=== PATIENT | female | born 1965 ===

== ENCOUNTER 2023-07-25 20:57 | Outpatient (REF) | payer MEDICARE, MEDICAID, SELFPAY ==
[2023-07-25 21:42] LABS: Basophils Percent Auto 0.6 % (0.2-2.0); Eosinophils Absolute Auto 0.2 10^3/uL (0.0-0.7); Eosinophils Percent Auto 3.2 % (0.9-7.0); Hematocrit 29.8 % (36.0-48.0); Hemoglobin 9.5 g/dL (12.0-16.0); Lymphocytes Absolute Auto 3.6 10^3/uL (1.2-3.8); Lymphocytes Percent Auto 58.1 % (20.5-60.0); Mean Corpuscular HGB Conc 31.9 g/dL (29.9-35.2); Mean Corpuscular Hemoglobin 30.4 pg (26.7-34.0); Mean Corpuscular Volume 95.5 fL (81.0-99.0); Mean Platelet Volume 10.9 fL (9.5-13.5); Monocytes Absolute Auto 0.7 10^3/uL (0.3-0.8); Monocytes Percent Auto 11.7 % (1.7-12.0); Neutrophils Absolute Auto 1.7 10^3/uL (1.4-6.5); Neutrophils Percent Auto 26.4 % (43.0-75.0); Platelet Count 323 10^3/uL (150-450); Red Blood Count 3.12 10^6/uL (4.20-5.40); Red Cell Distribution Width 12.7 % (11.0-15.0); White Blood Count 6.3 10^3/uL (4.0-11.0)
[2023-07-25 21:52] LABS: Alanine Aminotransferase 140 U/L (14-59); Albumin Globulin Ratio 1.1; Albumin Level 3.6 g/dL (3.4-5.0); Alkaline Phosphatase 123 U/L (46-116); Anion Gap 10.5; Aspartate Amino Transferase 82 U/L (15-37); BUN Creatinine Ratio 28.3; Bilirubin Total 0.3 mg/dL (0.2-1.0); Calcium 8.3 mg/dL (8.5-10.1); Carbon Dioxide 23.2 mmol/L (21.0-32.0); Chloride 110 mmol/L (98-107); Estimated GFR (African America >60 (>=60); Estimated GFR (Non-African Ame >60 (>=60); Globulin 3.3 g/dL; Glucose 73 mg/dL (74-106); Phosphorus 4.8 mg/dL (2.6-4.7); Potassium 4.7 mmol/L (3.5-5.1); Sodium 139 mmol/L (136-145); Total Protein 6.9 g/dL (6.4-8.2); Triglycerides 83 mg/dL (<=150)
== END 2023-07-25 20:58 | disposition home or self-care (01) ==
LOC: LAB 20:57
DX: E55.9 Vitamin D deficiency, unspecified (principal); E46 Unspecified protein-calorie malnutrition; R63.30 Feeding difficulties, unspecified
CPT/HCPCS: 36415; 80053; 83735; 84100; 84478; 85025

== ENCOUNTER 2023-08-08 16:27 | Outpatient (REF) | payer MEDICARE, MEDICAID, SELFPAY ==
[2023-08-08 16:58] LABS: Basophils Percent Auto 0.7 % (0.2-2.0); Eosinophils Absolute Auto 0.3 10^3/uL (0.0-0.7); Eosinophils Percent Auto 5.2 % (0.9-7.0); Hematocrit 32.3 % (36.0-48.0); Hemoglobin 9.9 g/dL (12.0-16.0); Lymphocytes Absolute Auto 3.3 10^3/uL (1.2-3.8); Lymphocytes Percent Auto 58.5 % (20.5-60.0); Mean Corpuscular HGB Conc 30.7 g/dL (29.9-35.2); Mean Corpuscular Hemoglobin 29.9 pg (26.7-34.0); Mean Corpuscular Volume 97.6 fL (81.0-99.0); Mean Platelet Volume 10.9 fL (9.5-13.5); Monocytes Absolute Auto 0.6 10^3/uL (0.3-0.8); Monocytes Percent Auto 10.6 % (1.7-12.0); Neutrophils Absolute Auto 1.4 10^3/uL (1.4-6.5); Platelet Count 336 10^3/uL (150-450); Red Blood Count 3.31 10^6/uL (4.20-5.40); Red Cell Distribution Width 13.5 % (11.0-15.0); White Blood Count 5.6 10^3/uL (4.0-11.0)
[2023-08-08 17:25] LABS: Alanine Aminotransferase 46 U/L (14-59); Albumin Globulin Ratio 0.9; Albumin Level 3.4 g/dL (3.4-5.0); Alkaline Phosphatase 101 U/L (46-116); Anion Gap 13.4; Aspartate Amino Transferase 37 U/L (15-37); Bilirubin Total 0.4 mg/dL (0.2-1.0); Calcium 8.5 mg/dL (8.5-10.1); Chloride 108 mmol/L (98-107); Estimated GFR (African America >60 (>=60); Estimated GFR (Non-African Ame 55 (>=60); Globulin 3.8 g/dL; Glucose 78 mg/dL (74-106); Magnesium 2.2 mg/dL (1.8-2.4); Phosphorus 4.3 mg/dL (2.6-4.7); Potassium 4.4 mmol/L (3.5-5.1); Sodium 142 mmol/L (136-145); Total Protein 7.2 g/dL (6.4-8.2); Triglycerides 92 mg/dL (<=150)
== END 2023-08-08 16:28 | disposition home or self-care (01) ==
LOC: LAB 16:27
DX: E55.9 Vitamin D deficiency, unspecified (principal); R63.30 Feeding difficulties, unspecified; E46 Unspecified protein-calorie malnutrition
CPT/HCPCS: 36415; 80053; 83735; 84100; 84478; 85025

== ENCOUNTER 2023-08-20 17:10 | Outpatient (REF) | payer MEDICARE, MEDICAID, SELFPAY ==
[2023-08-20 18:17] LABS: Basophils Percent Auto 0.5 % (0.2-2.0); Eosinophils Absolute Auto 0.2 10^3/uL (0.0-0.7); Eosinophils Percent Auto 3.3 % (0.9-7.0); Hematocrit 28.8 % (36.0-48.0); Hemoglobin 9.1 g/dL (12.0-16.0); Immature Granulocytes Abs Auto 0.01 10^3/uL (0.00-0.03); Immature Granulocytes Pct Auto 0.2 % (0.0-0.5); Lymphocytes Absolute Auto 3.3 10^3/uL (1.2-3.8); Lymphocytes Percent Auto 53.4 % (20.5-60.0); Mean Corpuscular HGB Conc 31.6 g/dL (29.9-35.2); Mean Corpuscular Hemoglobin 30.2 pg (26.7-34.0); Mean Corpuscular Volume 95.7 fL (81.0-99.0); Mean Platelet Volume 10.9 fL (9.5-13.5); Monocytes Absolute Auto 0.6 10^3/uL (0.3-0.8); Neutrophils Percent Auto 32.6 % (43.0-75.0); Platelet Count 271 10^3/uL (150-450); Red Blood Count 3.01 10^6/uL (4.20-5.40); Red Cell Distribution Width 13.7 % (11.0-15.0); White Blood Count 6.1 10^3/uL (4.0-11.0)
[2023-08-20 18:25] LABS: Alanine Aminotransferase 41 U/L (14-59); Albumin Globulin Ratio 0.9; Albumin Level 3.3 g/dL (3.4-5.0); Alkaline Phosphatase 112 U/L (46-116); Anion Gap 12.7; Aspartate Amino Transferase 38 U/L (15-37); Bilirubin Total 0.4 mg/dL (0.2-1.0); Calcium 8.6 mg/dL (8.5-10.1); Carbon Dioxide 22.6 mmol/L (21.0-32.0); Chloride 109 mmol/L (98-107); Estimated GFR (African America >60 (>=60); Estimated GFR (Non-African Ame 57 (>=60); Globulin 3.6 g/dL; Glucose 76 mg/dL (74-106); Magnesium 1.9 mg/dL (1.8-2.4); Phosphorus 4.6 mg/dL (2.6-4.7); Potassium 4.3 mmol/L (3.5-5.1); Sodium 140 mmol/L (136-145); Total Protein 6.9 g/dL (6.4-8.2); Triglycerides 59 mg/dL (<=150)
== END 2023-08-20 17:11 | disposition home or self-care (01) ==
LOC: LAB 17:10
DX: E55.9 Vitamin D deficiency, unspecified (principal); E46 Unspecified protein-calorie malnutrition; R63.30 Feeding difficulties, unspecified
CPT/HCPCS: 36415; 80053; 83735; 84100; 84478; 85025